=== PATIENT | female | born 1985 | race Two or more races ===

== ENCOUNTER 2020-09-24 09:48 | Outpatient (REF) | payer OTHER, SELFPAY ==
[2020-09-25 02:51] LABS: CT PCR NOT DETECTED (Not Detect.); NG PCR NOT DETECTED (Not Detect.)
[2020-09-25 09:07] LABS: BV Int Neg Control Negative (Negative); BV Int Pos Control Positive (Positive)
[2020-09-26 18:16] LABS: HPV mRNA E6/E7 rflx Not Detected (Not Detected)
== END 2020-09-24 09:49 | disposition home or self-care (01) ==
LOC: HO.LAB 09:48
PROVIDERS: PCP Internal Medicine; Referring Provider Internal Medicine; Visit Provider Advanced Practice Midwife
DX: Z01.419 Encounter for gynecological examination (general) (routine) without abnormal findings (principal); Z20.2 Contact with and (suspected) exposure to infections with a predominantly sexual mode of transmission; Z87.42 Personal history of other diseases of the female genital tract; R87.610 Atypical squamous cells of undetermined significance on cytologic smear of cervix (ASC-US); R87.810 Cervical high risk human papillomavirus (HPV) DNA test positive; N63.0 Unspecified lump in unspecified breast
CPT/HCPCS: 87480; 87491; 87510; 87591; 87624; 87625; 87660; 88142

== ENCOUNTER 2020-10-03 10:52 | Outpatient (REF) | payer OTHER, SELFPAY ==
--- NOTE | 2020-10-03 10:57 | MM_ITS ---
EXAMINATION: MM DIAGNOSTIC DIGITAL BREAST TOMOSYNTHESIS, BILATERAL US DIAGNOSTIC ULTRASOUND BREAST, RIGHT CLINICAL INFORMATION: 35-year-old with ropey palpable fullness 12:00 position at clinical exam. No palpable concern noted by patient. No discharge. No family history. No prior breast imaging. The lifetime risk of breast cancer based on the Tyrer-Cuzick Model is 8%. COMPARISON: None (current study represents initial baseline exam). TECHNIQUE: Digital breast tomosynthesis is performed in both the craniocaudal and mediolateral oblique views along with computer-aided detection (CAD). Synthesized 2D images are generated from the tomosynthesis. Additional spot right CC and spot right MLO x2 projections are obtained. Ultrasound right breast is targeted to the upper breast. Grayscale imaging and color Doppler are performed without and with harmonics. Patient has no focal area of palpable concern to direct attention during scanning. FINDINGS: The breasts are heterogeneously dense, which may obscure small masses (ACR BI-RADS breast composition Category c). There are no significant masses, abnormal calcifications, or other abnormalities. The axilla and skin contours are unremarkable. Ultrasound demonstrates no cystic or solid mass, architectural abnormality, or focal duct ectasia. No skin thickening or edema tracking in the soft tissue planes. Results are discussed with the patient at time of visit. Patient should be managed based on the clinical impression. If clinically indicated, further evaluation may be considered with surgical consult. Decision to proceed with biopsy should be based on clinical grounds and degree of clinical concern. MM/MM diagnostic mammo BI IMPRESSION: 1. No mammographic evidence of malignancy. 2. Unremarkable targeted right breast ultrasound. ASSESSMENT: BI-RADS 1: Negative RECOMMENDATION: 1. Patient should be managed based on the clinical impression. If clinically indicated, further evaluation may be considered with surgical consult. Decision to proceed with biopsy should be based on clinical grounds and degree of clinical concern. 2. Otherwise, routine annual screening mammography, beginning age 40, or earlier as clinical risk factors warrant. This patient's information was entered into a reminder system with a target due date for their next mammogram.
== END 2020-10-03 10:53 | disposition home or self-care (01) ==
LOC: HO.MAMMO 10:52
PROVIDERS: PCP Internal Medicine; Visit Provider Advanced Practice Midwife
DX: N63.0 Unspecified lump in unspecified breast (principal)
CPT/HCPCS: 76642; 77066

== ENCOUNTER → 2020-10-04 10:04 | Outpatient (BNVA) | payer OTHER, SELFPAY | PROVIDERS: Visit Provider Advanced Practice Midwife | DX: Z76.89 Persons encountering health services in other specified circumstances (principal) ==

== ENCOUNTER 2021-09-26 10:03 | Outpatient (REF) | payer OTHER, SELFPAY ==
[2021-09-26 12:32] LABS: HBc Num1 0.09 S/CO (0.00-0.79); Hepatitis B Core Antibody Nonreactive (Nonreactive)
[2021-09-26 12:40] LABS: HIV AB/AG Nonreactive (Nonreactive); HIV Num 1 0.06 S/CO (0.00-0.99); ~HepC Num1 0.06 S/CO (0.00-0.79); ~Hepatitis C Antibody Nonreactive (Nonreactive)
[2021-09-26 12:43] LABS: Syphilis Screen Nonreactive (Nonreactive)
[2021-09-26 14:44] LABS: CT PCR NOT DETECTED (Not Detect.); NG PCR NOT DETECTED (Not Detect.)
== END 2021-09-26 10:04 | disposition home or self-care (01) ==
LOC: HO.LAB 10:03
PROVIDERS: PCP Internal Medicine; Visit Provider Advanced Practice Midwife
DX: Z01.419 Encounter for gynecological examination (general) (routine) without abnormal findings (principal); Z20.2 Contact with and (suspected) exposure to infections with a predominantly sexual mode of transmission
CPT/HCPCS: 36415; 86704; 86780; 86803; 87389; 87491; 87591

== ENCOUNTER → 2022-05-25 10:51 | Outpatient (BNVA) | payer OTHER, SELFPAY | PROVIDERS: PCP Internal Medicine; Visit Provider Advanced Practice Midwife | DX: N63.25 Unspecified lump in the left breast, overlapping quadrants (principal) | CPT/HCPCS: 99212 ==

== ENCOUNTER 2022-06-09 14:11 | Outpatient (REF) | payer OTHER, SELFPAY ==
--- NOTE | ~2022-06-09 | MM_ITS ---
EXAMINATION: MM DIAGNOSTIC DIGITAL BREAST TOMOSYNTHESIS, BILATERAL US DIAGNOSTIC ULTRASOUND BREAST, LEFT CLINICAL INFORMATION: Palpable area of concern noted by patient upper inner left breast. Age 36. No known family history breast cancer. TC score 8%. COMPARISON: Mammography: 10/03/2020 (baseline diagnostic), targeted right breast ultrasound 10/03/2020. TECHNIQUE: Digital breast tomosynthesis is performed in both the craniocaudal and mediolateral oblique views along with computer-aided detection (CAD). Synthesized 2D images are generated from the tomosynthesis. Ultrasound left breast is targeted to the upper inner quadrant in the area of clinical concern. Patient is able to point to area at time of imaging. Grayscale imaging and color Doppler are performed without and with harmonics. FINDINGS: The breasts are heterogeneously dense, which may obscure small masses (ACR BI-RADS breast composition Category c). Parenchymal pattern is similar to prior exam. There is no interval mass or architectural abnormality or abnormal calcifications. The axilla are unremarkable. The skin contours are smooth. Ultrasound left breast demonstrates macrolobulated versus grouped cysts in area of clinical concern 10:00 position 8 cm in from nipple, overall size 1.7 x 1.1 x 1.6 cm. Margins are circumscribed. There is increased through-transmission of sound, no solid component, and no associated color flow. There is no solid mass or architectural abnormality. Results are discussed with the patient at time of visit, using an heel sprayer first. MM/MM tomosynthesis diagnostic BI IMPRESSION: -Benign cysts upper inner left breast corresponding to area of palpable concern measuring 1.7 cm in diameter. Right breast unremarkable. ASSESSMENT: BI-RADS 2: Benign RECOMMENDATION: Routine annual mammography screening, beginning age 40, or earlier as clinical risk factors warrant. This patient's information was entered into a reminder system with a target due date for their next mammogram.
== END 2022-06-09 14:12 | disposition home or self-care (01) ==
LOC: HO.MAMMO 14:11
PROVIDERS: PCP Internal Medicine; Visit Provider Internal Medicine
DX: N63.25 Unspecified lump in the left breast, overlapping quadrants (principal)
CPT/HCPCS: 76642; 77062; 77066

== ENCOUNTER 2022-10-05 10:12 | Outpatient (REF) | payer OTHER, SELFPAY ==
[2022-10-05 13:10] LABS: Syphilis Screen Nonreactive (Nonreactive)
[2022-10-05 13:57] LABS: CT PCR NOT DETECTED (Not Detect.); NG PCR NOT DETECTED (Not Detect.)
[2022-10-06 04:36] LABS: HBc Num1 0.08 S/CO (0.00-0.79); HIV AB/AG Nonreactive (Nonreactive); HIV Num 1 0.06 S/CO (0.00-0.99); Hepatitis B Core Antibody Nonreactive (Nonreactive); ~HepC Num1 0.06 S/CO (0.00-0.79); ~Hepatitis C Antibody Nonreactive (Nonreactive)
== END 2022-10-05 10:13 | disposition home or self-care (01) ==
LOC: HO.LNP 10:12
PROVIDERS: Visit Provider Advanced Practice Midwife
DX: Z11.4 Encounter for screening for human immunodeficiency virus [HIV] (principal); Z11.3 Encounter for screening for infections with a predominantly sexual mode of transmission; Z20.2 Contact with and (suspected) exposure to infections with a predominantly sexual mode of transmission
CPT/HCPCS: 86704; 86780; 86803; 87389; 87491; 87591

== ENCOUNTER 2023-04-08 09:00 | Outpatient (RCR) | payer OTHER, SELFPAY ==
--- NOTE | 2023-05-20 07:32 | MHC.PT.DC ---
[facility] [place] [facility] [place] [facility] [place] [facility] [address] Pascual Aranda [address] [phone] F: [phone] F: [phone] F: [phone] F: [phone] Physical Therapy Discharge Report Diagnosis: THORACIC SPINE PAIN Date of Surgery: NA Date of Evaluation: 04/02/23 Date of Discharge: 04/09/23 Treatments to Date: 2 Cancellations to Date: 0 No Shows to Date: 2 Discharge Status: Visit Non-compliance Discharge Summary: Attended eval and one treatment, no showed for next two treatments. Attempts to reach by phone were unsucessful. Status is unknown and patint is D/Drew for non-compliance. Electronically signed by: Ana Rosa Sandoval PT DPT Please sign and return to therapist. Thank you for your referral.
== END 2023-05-20 07:32 | disposition home or self-care (01) ==
LOC: HO.PT 09:00
PROVIDERS: PCP Internal Medicine; Visit Provider Internal Medicine
DX: M54.50 Low back pain, unspecified (principal); M54.6 Pain in thoracic spine
CPT/HCPCS: 97110; 97140; 97161; 97530

== ENCOUNTER 2023-08-26 14:10 | Outpatient (AMB) | payer OTHER, SELFPAY ==
[2023-08-26 14:14] VITALS: BP 120/78; PULSE 83; O2SAT 98; BMI 25.0
--- NOTE | 2023-08-26 14:14 | A.OFFPC_ITS ---
Vital Signs 08/26/23 14:14 Height 5 ft Weight 128 lb BMI 25.0 BP 120/78 Blood Pressure Location Lt brachial Position Sitting Pulse 83 Pulse Source Pulse Oximeter Pulse Oximetry (%) 98 Oxygen Delivery Method Room Air Intake Visit Reasons: PE Intake Note: Patient here for a physical exam College Coach Required: No Accompanied by: Self / Same As Patient Allergies No Known Allergies [No Known Allergies*] Allergy (Verified 08/26/23 14:25) Medication List - Last Reconciled 08/26/23 by Virgie De Leon MD ibuprofen 600 mg PO TID PRN 30 days norelgestromin-ethin.estradiol 150-35 mcg/24 hr (Xulane) 1 patch transdermal QWEEK 3 weeks sumatriptan succinate 25 mg PO Q2-4H PRN 30 days Tobacco use date assessed: 03/04/23 Dental Screening Dental Screen Date: 08/26/23 Did you have a dental visit in the last 12 months?: No Did you have a dental problem in the last 6 months where you did not have access to dental care?: No Was dental information given to patient?: Patient has dentist HPI HPI Comments History of Present Illness Details This is a 37-year-old female that comes for her physical exam. Last Pap smear was 2019 and was normal with HPV negative. No chest pain or shortness of breath. Complains of bilateral hand pain and will be referred to occupational therapy. [facility] Medical History History of abnormal cervical Pap smear Preeclampsia Surgical History Hx of section Hx laparoscopic cholecystectomy Family History (Updated 08/26/23 @ 14:28 by Virgie De Leon MD) Mother CVD (cardiovascular disease) Seizure disorder Maternal Grandmother Diabetes mellitus Father No problems noted. Social History Household Members: Children Housing: House Alcohol intake: former Patient Tobacco Use Status: Never used Tobacco e-Cigarette/Vaping Use: Never Used Second Hand Smoke Exposure: No service: No Current occupational status: employed Current occupation: housekeeping Current occupational exposures/hazards: No Sexual orientation: Straight/Heterosexual Gender identity: Female Cognitive needs: No Hearing needs: No Vision needs: No Female Reproductive History Menstrual Age of Menarche: 10 Questionnaire Thrive Questionnaire Date Thrive assessed: 03/04/23 KHUSHBOO-7 AMB Questionnaire KHUSHBOO-7 Date KHUSHBOO - 7 assessed: 03/04/23 Source: Developed by Drs. Mickey Narayan, Tiffany Page, Nitin Whatley and colleagues, with an educational declan from [employer]. Review of Systems Const All systems reviewed & are unremarkable except as noted in HPI and below Eyes Reports no additional complaints, Denies change in vision and Denies other visual disturbances Card Denies chest pain at rest, Denies chest pain with activity, Denies edema, Denies irregular heart rhythm, Denies claudication, Denies dyspnea, Denies dyspnea on exertion, Denies orthopnea, Denies paroxysmal nocturnal dyspnea and Denies slow heart rate Resp Denies cough, Denies dyspnea and Denies dyspnea on exertion GI Denies abdominal pain, Denies change in bowel habits, Denies excessive flatus, Denies nausea and Denies vomiting Denies urinary incontinence, Denies urinary hesitancy and Denies urinary urgency Musc Denies abnormal gait, Denies atrophy, Denies deformity and Denies limited range of motion Skin/Breast Denies bleeding lesions, Denies changing lesions and Denies rash Neuro Denies abnormal gait and Denies lack of coordination Physical exam (Primary Care) Vital Signs: Last Vital Signs Pulse 83 08/26/23 14:14 BP 120/78 08/26/23 14:14 Pulse Ox 98 08/26/23 14:14 Oxygen Delivery Method Room Air 08/26/23 14:14 BMI result Body Mass Index 25.0 Tobacco/Smoking Status: Tobacco use Status Tobacco use date assessed 03/04/23 08/26/23 14:17 Patient Tobacco Use Status Never used Tobacco 08/26/23 14:17 e-Cigarette/Vaping Use Never Used 08/26/23 14:17 Thrive Assessment: Date of Thrive Assessment Date Thrive assessed 03/04/23 08/26/23 14:17 Const Orientation/consciousness: patient oriented x3 HENMT Head: Yes normal to inspection, Yes normocephalic and Yes atraumatic Ears: external ears normal Eyes General: appearance normal, both eyes and all related structures Eyelids: Yes eyelids normal Conjunctivae: conjunctivae normal Neck Neck: Yes normal visual inspection and Yes supple Resp Effort & Inspection: normal respiratory effort Auscultation: clear to auscultation bilaterally Cardio Jugular venous distension: no JVD Rate: regular rate Rhythm: regular rhythm Heart sounds: S1 normal heart sound present and S2 normal heart sound present GI Inspection: Yes normal to inspection Palpation (GI): Soft to palpation and nontender Auscultation: normal bowel sounds Skin General skin exam: no rashes or lesions noted Neuro General: patient oriented x3 and no focal motor deficits Extrem General: Yes full ROM Psych Appearance: grossly normal Office Procedures Flu Questionnaire Does the patient have a severe egg allergy?: No Does the patient have severe life threatening allergies?: No Does the patient have a fever or illness today?: No Has the patient ever had Guillain-Harwood Syndrome?: No Has the patient ever had any past reaction to a flu shot?: No Immunizations flu vacc [id number] 6mos up(PF) 60 mcg(15 mcgx4)/0.5 mL IM syringe Performing Provider: Virgie De Leon MD Performing Location: [facility] Administered by: JAVY Feliz on 08/26/23 14:39 Dose Route Admin Location Dispensed Lot Number Expiration Date NDC Car Storer 0.5 mL IM Left Deltoid 0.5 mL [id number] 05/14/24 [id number] [employer] VIS Given Date VIS Provided VIS Publication Date 08/26/23 Single Vaccine 21 Eligibility Eligibility Date Funding Source Not [facility] Eligible 08/26/23 Private Assessment and Plan Assessment & Plan (1) Physical exam: Code(s): Z00.00 - Encounter for general adult medical examination without abnormal findings Plan: Repeat in a year Orders: Orders Influenza [id number] Immunization Today Z23 - Encounter for immunization OT Evaluation and Treatment Today M79.641 - Pain in right hand, M79.642 - Pain in left hand Coding Level of Care Code Est Pt Prev Care 18-39y(83041) Diagnoses Physical exam Z00.00 Time Spent (min) 31
== END 2023-08-26 14:39 | disposition home or self-care (01) ==
PROVIDERS: Visit Provider Internal Medicine
DX: Z00.00 Encounter for general adult medical examination without abnormal findings (principal); Z23 Encounter for immunization
CPT/HCPCS: 90471; 90686; 99395

== ENCOUNTER 2024-05-09 14:53 | Emergency (ER) | payer OTHER, SELFPAY ==
--- NOTE | ~2024-05-09 | US_ITS ---
EXAMINATION: US OBSTETRICAL ULTRASOUND CLINICAL INFORMATION: Spotting, cramping. COMPARISON: None available. LMP: Unknown. TECHNIQUE: Ultrasound of the maternal pelvis is performed using transabdominal and transvaginal transducers. Transvaginal imaging is performed due to inadequate visualization transabdominally. M-mode Doppler is also performed. FINDINGS: There is a single intrauterine gestational sac with visible yolk sac, embryo/fetus, and cardiac activity. There is no significant subchorionic hemorrhage or hematoma. HR: 172 beats per minute. CRL (crown rump length): 2.3 cm (9 weeks +/- 4 days). ANAI (estimated date of delivery): 12/12/2024 +/- 4 days. MATERNAL ADNEXA: Ovaries are normal in morphology with preserved flow on color Doppler at the moment of this examination. The right maternal ovary measures 2 x 1.8 x 1.5 cm. Volume 2.8 mL. The left maternal ovary measures 3.8 x 2.2 x 3.1 cm. Volume 13.8 mL. There is a 2.4 x 2.2 x 2 cm cyst in the left ovary with suggestion of a small amount of layering avascular debris. No adnexal masses. No free fluid. US/US OB <= 14 weeks fetus IMPRESSION: 1. Single live intrauterine gestation with ultrasound gestational age of 9 weeks. 2. Minimally complicated cyst in the left ovary, most likely representing a hemorrhagic cyst with layering debris. Recommend follow-up at the time of next OB appointment.
[2024-05-09 15:11] VITALS: BP 131/69; PULSE 94; RESP 20; TEMP 37.2; O2SAT 98; BMI 22.0
--- NOTE | 2024-05-09 15:13 | ED.GENADULT ---
HPI - General Adult General Chief complaint: Vaginal Bleeding Stated complaint: Vaginal bleeding, discomfort - pt is Time Seen by Provider: 05/09/24 16:58 Source: patient Mode of arrival: ambulatory Limitations: no limitations History of Present Illness ED Provider: SEBASTIAN CIFUENTES HPI narrative: 38-year-old female, , all premature births, with past medical history significant for preeclampsia presents to the emergency department today for evaluation of abdominal cramping and vaginal spotting x1 week. She can not recall when her LMP was however believes she had her. Prior to mother's day (2 months ago). Reports having unprotected intercourse approximately a month and a half ago. Reports recent nausea and dizziniess, prompting her to take home test one week ago which came back positive. Admits she has an appointment with her OBGYN on 05/23/24. Reports associated increased urinary frequency. Denies nausea at present. Denies fever, chills, flank pain, dysuria, hematuria, vomiting, constipation or diarrhea. Related Data Previous Rx's ?Medication ?Instructions ?Recorded ibuprofen 600 mg tablet 600 mg PO TID PRN pain 30 days #90 03/04/23 tabs sumatriptan succinate 25 mg tablet 25 mg PO Q2-4H PRN migraine 03/04/23 headache 30 days #9 tabs norelgestromin 150 mcg-e.estradiol 1 patch transdermal QWEEK 3 weeks 10/26/23 35 mcg/24 hr weekly transderm #3 ea patch (Xulane) cephalexin 500 mg capsule 500 mg PO BID 7 days #14 caps 05/09/24 vits no.126-ferrous fum 1 tab PO DAILY #30 tabs 05/09/24 28 mg iron-folic acid 800 mcg tablet (Classic ) Allergies Allergy/AdvReac Type Severity Reaction Status Date / Time No Known Allergies Allergy Verified 05/09/24 15:15 [No Known Allergies*] Review of Systems Review of Systems: Constitutional: No fever, chills, fatigue, night sweats, weight changes ENT/Mouth: No ear pain, hearing loss, nasal congestion, sinus pain, rhinorrhea, sore throat Eyes: No eye pain, swelling, redness, vision changes, discharge Cardio: No chest pain, palpitations, MA, orthopnea, peripheral edema Pulm: No SOB, cough, sputum, wheezing, dyspnea, hemoptysis GI: No nausea, vomiting, hematemesis, abdominal pain, diarrhea, constipation, hematochezia, melena : No dysuria, urgency, hesitancy, hematuria, flank pain, urinary flow changes, urinary incontinence or retention, +vaginal bleeding, +increased urinary frequency MSK: No back pain, neck pain, joint pain, myalgias Skin: No lesions, rashes Neuro: No weakness, numbness, paresthesias, LOC, dizziness, headache Psych: No anxiety/panic, depression, SI/HI, AH/VH All other systems reviewed and are negative. COUNTS INCLUDE 234 BEDS AT THE [facility] Past Medical History Attestation statement: The following information was validated with the patient. Source: old records reviewed and nursing notes reviewed Medical History History of abnormal cervical Pap smear Preeclampsia Surgical History Hx of section Hx laparoscopic cholecystectomy Family History Family History Mother CVD (cardiovascular disease) Seizure disorder Maternal Grandmother Diabetes mellitus Father No problems noted. Social History Social History Household Members: Children Housing: House Alcohol intake: former Patient Tobacco Use Status: Never used Tobacco e-Cigarette/Vaping Use: Never Used Second Hand Smoke Exposure: No service: No Current occupational status: employed Current occupation: housekeeping Current occupational exposures/hazards: No Sexual orientation: Straight/Heterosexual Gender identity: Female Cognitive needs: No Hearing needs: No Vision needs: No Physical Exam ED Vital Signs: Vital Signs - 24 hr 05/09/24 15:11 05/09/24 19:09 Temperature 98.9 F 98.9 F Pulse Rate 94 94 Respiratory Rate 20 20 Blood Pressure 131/69 131/69 Pulse Oximetry 98 98 Oxygen Delivery Method Room Air Room Air BMI result Body Mass Index 22.0 Vital signs stable, afebrile Const General: cooperative, healthy appearing, comfortable and no acute distress Orientation/consciousness: patient oriented x3 Limitations: no limitations HENMT Head: Yes normal to inspection, Yes No palpable skull fracture present, Yes normocephalic and Yes atraumatic Eyes General: appearance normal, both eyes and all related structures Resp Effort & Inspection: normal respiratory effort and able to speak in complete sentences Auscultation: clear to auscultation bilaterally Cardio Rate: regular rate Rhythm: regular rhythm GI Other: Abdomen soft, nondistended, nontender to palpation, no rebound tenderness or guarding. Normoactive bowel sounds x4. Other: Sensitive exam performed with security developer Marisa present in room to surveyor oil well directional. external genitalia is normal in appearance without lesions, swelling, masses or tenderness. Vaginal canal is pink and moist without lesions. There is copious amounts of purulent discharge within the vaginal canal. No blood or clots noted. Cervical os is closed. Cervix i non-tender without lesions or erosions. No blood noted at cervical os. Uterus is anteflexed, non-tender and normal in size. Ovaries are non-tender without palpable masses or enlargement. No cervical motion tenderness on bimanual exam. General: Yes no CVA tenderness Back/Spine/Pelvis Back: no CVA tenderness Skin General skin exam: no rashes or lesions noted Neuro General: patient oriented x3 Course Course Course Narrative: This is a rapid medical exam performed by Eli Koch NP: Additional HPI, ROS, PE not included below will be deferred to primary provider. Patient is a 38-year-old female , all premature births, presenting to the ED with one week of lower abdominal cramping and spotting. Multiple positive tests at home. Scheduled an apopintment with [facility] BURN TABLE OPERATOR but that is not until mid May. Unsure date of LMP. Denies recent intercourse. Plan: labs Reevaluation(s) Reevaluation #1: 6846-- CBC without leukocytosis or left shift. No anemia. H&H stable. Chemistry without acute electrolyte abnormality requiring intervention. Normal liver and renal function. Beta HCG quant measuring [id number], correlating with 7-12 week . ultrasound showing single live intrauterine gestation with ultrasound gestational age 9 weeks. There is minimally complicated cyst in the left ovary, most consistent with hemorrhagic cyst with layering debris. Outpatient OB follow-up recommended for this. Urine is positive for infection. Vaginal swabs for CT/NG, bacterial vaginosis and Trichomonas sent to lab for testing. Patient's blood type is O negative. Antibody screen negative. > I discussed case with on-call OBGYN, Dr. Kamara who recommends RhoGAM administration and discharge home with daily vitamins daily along with strict return precautions. Recommending outpatient follow-up as scheduled on 05/23/24. Will treat for urinary tract infection. Ivan sent to pharmacy for treatment. Advised patient that we will call with any positive results regarding STD swabs. she verbalizes understanding. I have also provided her with [facility] executive account manager referral to see if they are able to an earlier appointment. Patient has remained stable throughout ED visit today. Discussed worrisome signs and symptoms and when to return to the ED. All questions answered at this time. Patient is agreeable with disposition and stable for discharge. Medications Administered Discontinued Medications Generic Name Dose Route Start Last Admin Trade Name Freq PRN Reason Stop Dose Admin Rho Immune Globulin 300 mcg 05/09/24 18:24 05/09/24 18:50 Rho(D) Immune Globulin 300 Mcg Syringe IM 05/09/24 18:25 300 mcg ONCE ONE Administration Medical Decision Making Medical Decision Making MDM Narrative: 38-year-old female, , all premature births, with past medical history significant for preeclampsia presents to the emergency department today for evaluation of abdominal cramping and vaginal spotting x1 week. Vital signs stable, afebrile. She is nontoxic appearing in no acute distress. Sitting comfortably on the exam bed. Abdomen is soft, nondistended, nontender to palpation, no rebound tenderness or guarding. Normoactive bowel sounds x4. No CVAT bilaterally. On sensitive exam, external genitalia is normal in appearance without lesions, swelling, masses or tenderness. Vaginal canal is pink and moist without lesions. There is copious amounts of purulent discharge within the vaginal canal. No blood or clots noted. Cervical os is closed. Cervix i non-tender without lesions or erosions. No blood noted at cervical os. Uterus is anteflexed, non-tender and normal in size. Ovaries are non-tender without palpable masses or enlargement. No cervical motion tenderness on bimanual exam. Skin warm, dry, intact. No rashes. Differential diagnosis includes intrauterine , urinary tract infection, threatened , spontaneous , ovarian cyst, ovarian cyst rupture, ectopic , sexually transmitted infection. Unlikely ovarian torsion, missed , septic . Plan for basic labs, type and screen, BV, CT/NG, Trichomonas swabs, urinalysis, beta HCG quant, ultrasound, re-evaluation. Differential Diagnosis Differential Diagnoses: The differential diagnosis associated with the presentation includes As above Admission/Observation Not indicated. Consult Healthcare Provider Management of the patient was discussed with: Employee Adviser (NICOL Kamara) Lab Data MDM Lab Attestation statement: I reviewed the patient's lab results. as above. 05/09/24 15:59 05/09/24 15:58 Labs: Lab Results 05/09/24 05/09/24 Range/Units 15:58 15:59 WBC 8.9 (4.8-10.8) X10*3/uL RBC 3.96 L (4.20-5.50) X10*6/uL Hgb 12.5 (12.0-16.0) g/dl Hct 35.9 L (37.0-47.0) % MCV 90.7 (80.0-98.0) fL MCH 31.6 (27.0-33.0) pg MCHC 34.8 (31.0-35.0) g/dl RDW 11.9 (11.0-16.0) % Plt Count 238 (160-400) X10*3/uL MPV 11.1 (9.4-12.3) fL Immature Gran % (Auto) 0.4 (0.0-0.4) % Neut % (Auto) 69.4 (45-73) % Lymph % (Auto) 22.3 (20-40) % [place] % (Auto) 6.6 (2-11) % Eos % (Auto) 1.0 (0-4) % Baso % (Auto) 0.3 (0-2) % Lymph # (Auto) 2.0 (1.2-4.9) X10*3/uL [place] # (Auto) 0.6 (0.1-1.2) X10*3/uL Eos # (Auto) 0.1 (0.0-0.4) X10*3/uL Baso # (Auto) 0.0 (0.0-0.2) X10*3/uL Abs Immat Gran (auto) 0.04 H (0.00-0.03) X10*3/uL Absolute Neuts (auto) 6.2 (2.0-8.3) x10*3/uL Absolute Nucleated RBC 0.000 (0.0-0.012) X10*3/uL Nucleated RBC % (auto) 0.0 (0.0-0.2) /100WBC PT 11.0 L (11.1-13.3) SEC INR 0.9 (0.9-1.1) Sodium 139 (135-145) mmol/L Potassium 4.2 (3.3-5.1) mmol/L Chloride 105 (96-108) mmol/L Carbon Dioxide 26 (22-29) mmol/L Anion Gap 12 (12-20) BUN 13 (9-16) mg/dL Creatinine 0.62 (0.5-1.4) mg/dL Estim Creat Clear Calc 111.8 Estimated GFR > 60 Random Glucose 85 (60-115) mg/dL Calcium 9.3 (8.4-10.2) mg/dL Total Bilirubin 0.3 (0.0-1.0) mg/dL AST 17 (5-31) U/L ALT 9 (0-31) U/L Alkaline Phosphatase 100 (39-117) U/L Total Protein 8.0 (6.5-8.0) g/dL Albumin 4.2 (3.5-5.0) g/dL Beta HCG, Quant 211314 mIU/mL Urine Color Yellow Urine Appearance Cloudy Urine pH 5.5 (5.0-9.0) Ur Specific [place] >= 1.030 H (1.005-1.025) Urine Protein Trace (Neg-Trace) mg/dL Urine Glucose (UA) Negative (Negative) mg/dL Urine Ketones Negative (Negative) mg/dL Urine Blood Small (1+) H (Negative) Urine Nitrite Negative (Negative) Ur Leukocyte Esterase Moderate (2+) H (Negative) Urine RBC 6-10 H (0-2) /HPF Urine WBC 6-10 H (0-5) /HPF Ur Squamous Epith Cells 11-20 (0-2) /HPF Urine Bacteria 4+ (None Seen) Hyaline Casts 0-2 (0-2) /LPF Blood Type O Negative Antibody Screen NEGATIVE Independent Interpretation I performed an independent interpretation of an: Ultrasound Interpretation: ultrasound with intrauterine , agree with radiologist's interpretation. Radiology Impression Discussion of test interpretation with radiology: I have reviewed the radiologist's reading. Radiologist Impression: EXAMINATION: US OBSTETRICAL ULTRASOUND CLINICAL INFORMATION: Spotting, cramping. COMPARISON: None available. LMP: Unknown. TECHNIQUE: Ultrasound of the maternal pelvis is performed using transabdominal and transvaginal transducers. Transvaginal imaging is performed due to inadequate visualization transabdominally. M-mode Doppler is also performed. FINDINGS: There is a single intrauterine gestational sac with visible yolk sac, embryo/fetus, and cardiac activity. There is no significant subchorionic hemorrhage or hematoma. HR: 172 beats per minute. CRL (crown rump length): 2.3 cm (9 weeks +/- 4 days). ANAI (estimated date of delivery): 12/12/2024 +/- 4 days. MATERNAL ADNEXA: Ovaries are normal in morphology with preserved flow on color Doppler at the moment of this examination. The right maternal ovary measures 2 x 1.8 x 1.5 cm. Volume 2.8 mL. The left maternal ovary measures 3.8 x 2.2 x 3.1 cm. Volume 13.8 mL. There is a 2.4 x 2.2 x 2 cm cyst in the left ovary with suggestion of a small amount of layering avascular debris. No adnexal masses. No free fluid. US/US OB <= 14 weeks fetus IMPRESSION: 1. Single live intrauterine gestation with ultrasound gestational age of 9 weeks. 2. Minimally complicated cyst in the left ovary, most likely representing a hemorrhagic cyst with layering debris. Recommend follow-up at the time of next OB appointment. Independent Historian Clinical information obtained from an independent historian. History obtained from or confirmed by: Friend External Record Review External record reviewed: Inpatient record Prescription Management I considered prescription management with: Antibiotic (Keflex) and Other ( vitamin) Social Determinants Patient?s care significantly limited by Social Determinants of Health including: Other Social Determinant of Health Critical Care Time Critical Care Time Critical Care Time: No Discharge Plan Discharge Clinical Impression: Normal intrauterine on ultrasound in first trimester, Vaginal spotting Patient Disposition: Home, Self-Care Instructions: Non-Threatening First Trimester Vaginal Bleed (ED), Urinary Tract Infection in (ED), First Trimester (ED), at 7 to 10 Weeks (ED) Additional Instructions: Your blood work today is reassuring. Your hormone (beta HCG) measures 961975 today, consistent with 7-12 week . Your ultrasound shows intrauterine measuring approximately 9 weeks gestation. Given vaginal spotting, you were given RhoGAM in ED today to protect the baby against mom's antibodies. vitamins have been sent to your pharmacy for you to take daily for supplementation. As discussed, you were given strict return precautions. Return to the ED if you began to experience increased vaginal bleeding, clotting, fever, chills, nausea or vomiting, worsening abdominal pain. Follow-up with OBGYN on 05/23/2024 as planned. You may also reach out to [facility] OBGYN. A referral has been provided to you. You may call them to make an appointment. They will not call you. Additionally, your urine shows infection. Keflex is an antibiotic that has been sent to your pharmacy for you to take as treatment. This antibiotic is safe during . Take this as prescribed. Do not miss any doses or stop taking this early as this may cause infection to persist or worsen. Vaginal swabs to check for sexually transmitted infections have been sent to the lab. You will be called in 2-3 days with any positive results and will be treated at that time. Prescriptions: New cephalexin 500 mg capsule 500 mg PO BID 7 Days Qty: 14 0RF Classic 28 mg iron- 800 mcg tablet 1 tab PO DAILY Qty: 30 0RF No Action Xulane 150-35 mcg/24 hr patch weekly 1 patch transdermal QWEEK 21 Days Qty: 3 1RF Rx Instructions: apply once weekly for 3 weeks of a 4-week cycle sumatriptan succinate 25 mg tablet 25 mg PO Q2-4H PRN (Reason: migraine headache) 30 Days Qty: 9 0RF Rx Instructions: do not exceed 8 doses per 24 hrs ibuprofen 600 mg tablet 600 mg PO TID PRN (Reason: pain) 30 Days Qty: 90 0RF Referrals: [facility] Women's Services [Provider Group] Interventions: ED Discharge Assessment Last Done: 05/09/24 19:09 Discharge Date/Time: 05/09/24 19:10 Print Language: Amharic
[2024-05-09 16:03] LABS: MANUAL DIFF FLAG NO
[2024-05-09 16:08] LABS: Basophils Percent Auto 0.3 % (0-2); Eosinophils Absolute Auto 0.1 X10*3/uL (0.0-0.4); Hematocrit 35.9 % (37.0-47.0); Hemoglobin 12.5 g/dl (12.0-16.0); Imm Gran Abs Auto 0.04 X10*3/uL (0.00-0.03); Imm Gran Pct Auto 0.4 % (0.0-0.4); Lymphocytes Percent Auto 22.3 % (20-40); Mean Corpuscular HGB Conc 34.8 g/dl (31.0-35.0); Mean Corpuscular Hemoglobin 31.6 pg (27.0-33.0); Mean Corpuscular Volume 90.7 fL (80.0-98.0); Mean Platelet Volume 11.1 fL (9.4-12.3); Monocytes Absolute Auto 0.6 X10*3/uL (0.1-1.2); Monocytes Percent Auto 6.6 % (2-11); Neutrophils Absolute Auto 6.2 x10*3/uL (2.0-8.3); Neutrophils Percent Auto 69.4 % (45-73); Platelet Count 238 X10*3/uL (160-400); Red Blood Count 3.96 X10*6/uL (4.20-5.50); Red Cell Distribution Width 11.9 % (11.0-16.0); White Blood Count 8.9 X10*3/uL (4.8-10.8)
[2024-05-09 16:09] LABS: Appearance Urine Cloudy; Color Urine Yellow; Glucose Urine UA Negative (Negative); Leukocyte Esterase Urine Moderate (2+) (Negative); Nitrite Urine Negative (Negative); PH 5.5 (5.0-9.0); UMIC TRIGGER UACC YES; Urine Blood Small (1+) (Negative); Urine Ketones Negative (Negative); Urine Protein Trace mg/dL (Neg-Trace)
[2024-05-09 16:15] LABS: INTERNATIONAL NORM RATIO 0.9 (0.9-1.1)
[2024-05-09 16:22] LABS: Bacteria Urine 4+ (None Seen); Hyaline Casts Urine 0-2 /LPF (0-2); UACC Culture Trigger YES
[2024-05-09 16:23] LABS: Specific Gravity - Urine >= 1.030 (1.005-1.025)
[2024-05-09 16:34] LABS: Alanine Aminotransferase 9 U/L (0-31); Albumin Level 4.2 g/dL (3.5-5.0); Alkaline Phosphatase 100 U/L (39-117); Anion Gap 12 (12-20); Aspartate Amino Transferase 17 U/L (5-31); Bilirubin Total 0.3 mg/dL (0.0-1.0); Blood Urea Nitrogen 13 mg/dL (9-16); Calcium 9.3 mg/dL (8.4-10.2); Carbon Dioxide 26 mmol/L (22-29); Chloride 105 mmol/L (96-108); Creatinine Clr Calc Pharmacy 111.8; Estimated Glomerular Filt Rate > 60; Glucose Random 85 mg/dL (60-115); Potassium 4.2 mmol/L (3.3-5.1); Sodium 139 mmol/L (135-145)
--- NOTE | 2024-05-09 18:32 | PM.GYNCN ---
ROBOTICS ENGINEER - CN: HPI Data of Consult Consult date: 05/09/24 Primary Care Provider: Virgie De Leon MD Consult Narrative Narrative: I was consulted on Popeye Vences who is a 38 year old female presenting to the emergency room complaining of cramping and vaginal spotting x1 week. No other associated GI or symptoms no vaginal discharge. Blood type O negative antibody screen negative cc:: CC: OB PMF Past Medical History Medical History History of abnormal cervical Pap smear Preeclampsia Family History Family History Mother CVD (cardiovascular disease) Seizure disorder Maternal Grandmother Diabetes mellitus Father No problems noted. Surgical History Surgical History Hx of section Hx laparoscopic cholecystectomy Social History Social History Household Members: Children Housing: House Alcohol intake: former Patient Tobacco Use Status: Never used Tobacco e-Cigarette/Vaping Use: Never Used Second Hand Smoke Exposure: No Advance Directives: No Advance Directives Information Provided: No Do you have a plan to hurt others: No Plan service: No Current occupational status: employed Current occupation: housekeeping Current occupational exposures/hazards: No Sexual orientation: Straight/Heterosexual Gender identity: Female Cognitive needs: No Hearing needs: No Vision needs: No Meds Allergies Allergy/AdvReac Type Severity Reaction Status Date / Time No Known Allergies Allergy Verified 05/09/24 15:15 [No Known Allergies*] ROBOTICS ENGINEER Physical Exam Vitals Vital signs: Temp Pulse Resp BP Pulse Ox O2 Del Method 98.9 F 94 20 131/69 98 Room Air 05/09/24 15:11 05/09/24 15:11 05/09/24 15:11 05/09/24 15:11 05/09/24 15:11 05/09/24 15:11 BMI result Body Mass Index 22.0 Additional Comments: Reported by LAWRENCE Alfredo in the emergency room as the following: Abdomen soft nontender Pelvic exam no blood per vagina closed cervix, no cervical tenderness uterine or adnexal tenderness ROBOTICS ENGINEER - Results Labs 05/09/24 15:59 05/09/24 15:58 Labs: Short CBC 05/09/24 Range/Units 15:59 WBC 8.9 (4.8-10.8) X10*3/uL Hgb 12.5 (12.0-16.0) g/dl Hct 35.9 L (37.0-47.0) % Plt Count 238 (160-400) X10*3/uL BMP 05/09/24 15:58 Sodium 139 Potassium 4.2 Chloride 105 Carbon Dioxide 26 BUN 13 Creatinine 0.62 Calcium 9.3 Liver Function 05/09/24 Range/Units 15:58 Total Bilirubin 0.3 (0.0-1.0) mg/dL AST 17 (5-31) U/L ALT 9 (0-31) U/L Alkaline Phosphatase 100 (39-117) U/L Albumin 4.2 (3.5-5.0) g/dL Urine 05/09/24 Range/Units 15:59 Urine Color Yellow Urine Appearance Cloudy Urine pH 5.5 (5.0-9.0) Ur Specific [place] >= 1.030 H (1.005-1.025) Urine Protein Trace (Neg-Trace) mg/dL Urine Glucose (UA) Negative (Negative) mg/dL Antibody Screen Antibody Screen NEGATIVE 05/09/24 15:58 Imaging US - abdomen: Radiologist's impression: ITS Impressions Ultrasound 05/09/24 15:38 IMPRESSION: 1. Single live intrauterine gestation with ultrasound gestational age of 9 weeks. 2. Minimally complicated cyst in the left ovary, most likely representing a hemorrhagic cyst with layering debris. Recommend follow-up at the time of next OB appointment. Assessment and Plan (1) Early stage of : Status: Acute Recommended the following: RhoGAM 300 mcg IM. vitamin 1 tablet p.o. q.d. SAB warnings to be given to the patient, she is to come back to emergency room in case of pelvic cramping and or bleeding Follow-up with her scheduled care appointment. Check GC/CT, BV panel, urine culture if any is positive treat with appropriate antibiotics I spent a total of 20 minutes reviewing the chart, communicating to the emergency room provider and documenting in the medical record
[2024-05-09] MEDS: Rho(D) Immune Globulin 300 MCG SYRINGE IM (18:50)
[2024-05-09 19:09] VITALS: BP 131/69; PULSE 94; RESP 20; TEMP 37.2; O2SAT 98
[2024-05-09 20:54] LABS: CT PCR NOT DETECTED (Not Detect.); NG PCR NOT DETECTED (Not Detect.)
[2024-05-10 10:52] LABS: Bacterial Vaginosis PCR POSITIVE (Negative); Candida Group PCR NOT DETECTED (Not Detect); Candida glab krusei PCR NOT DETECTED (Not Detect); Trichomonas vaginalis PCR NOT DETECTED (Not Detect)
== END 2024-05-09 19:10 | disposition home or self-care (01) ==
PROVIDERS: Physician Assistant Medical; Registered Nurse Emergency; Emergency Provider Emergency Medicine; PCP Internal Medicine
DX: O20.9 Hemorrhage in early pregnancy, unspecified (principal); N76.0 Acute vaginitis; R25.2 Cramp and spasm; Z3A.01 Less than 8 weeks gestation of pregnancy; Z79.899 Other long term (current) drug therapy
CPT/HCPCS: 0352U; 0353U; 36415; 76801; 80053; 81001; 84702; 85025; 85610; 86850; 86900; 86901; 87086; 96372; 99282; 99284; J2790

== ENCOUNTER → 2024-05-09 16:59 | Outpatient (BNV) | payer OTHER, SELFPAY | PROVIDERS: Emergency Provider Emergency Medicine; PCP Internal Medicine; Visit Provider Obstetrics & Gynecology | DX: Z34.90 Encounter for supervision of normal pregnancy, unspecified, unspecified trimester (principal) | CPT/HCPCS: 99283 ==

== ENCOUNTER 2025-09-26 16:46 | Outpatient (AMB) | payer OTHER, SELFPAY ==
[2025-09-26 16:56] VITALS: BP 108/72; PULSE 70; O2SAT 98; BMI 28.5
--- NOTE | 2025-09-26 16:56 | MHC.PC.OV ---
Vital Signs 09/26/25 16:56 Height 5 ft Weight 146 lb BMI 28.5 BP 108/72 Blood Pressure Location Lt brachial Position Sitting Pulse 70 Pulse Source Pulse Oximeter Pulse Oximetry (%) 98 Oxygen Delivery Method Room Air Intake Visit Reasons: Wrist Pain Electric Cell Tender Required: No Accompanied by: Self / Same As Patient Allergies No Known Allergies (No Known Allergies*) Allergy (Verified 09/26/25 17:15) Medication List - Last Reconciled 09/26/25 by Virgie De Leon MD ibuprofen 600 mg PO TID PRN 30 days sumatriptan succinate 25 mg PO Q2-4H PRN 30 days Tobacco use date assessed: 09/26/25 Dental Screening Dental Screen Date: 09/26/25 Did you have a dental visit in the last 12 months?: Yes Did you have a dental problem in the last 6 months where you did not have access to dental care?: No Was dental information given to patient?: Patient has dentist HPI HPI Comments History of Present Illness Details The patient is a 40-year-old female presenting with a complaint that she has pain in her left wrist. She has a 9-month-old baby that she constantly carry her in the left hand. She reports a history of migraines managed with ibuprofen and sumatriptan. The patient has no known drug allergies. She has a history of an unspecified surgery. [facility] Medical History (Updated 09/26/25 @ 17:20 by Virgie De Leon MD) History of abnormal cervical Pap smear Preeclampsia Surgical History Hx of section Hx laparoscopic cholecystectomy Family History Mother CVD (cardiovascular disease) Seizure disorder Maternal Grandmother Diabetes mellitus Father No problems noted. Social History Household Members: Children Housing: House Alcohol intake: former Patient Tobacco Use Status: Never used Tobacco Tobacco use type: Cigarette e-Cigarette/Vaping Use: Never Used Second Hand Smoke Exposure: No service: No Current occupational status: employed Current occupation: housekeeping Current occupational exposures/hazards: No Sexual orientation: Straight/Heterosexual Gender identity: Female Cognitive needs: No Hearing needs: No Vision needs: No Female Reproductive History Menstrual Age of Menarche: 10 Questionnaire PHQ-9 Over the last 2 weeks, how often have you been bothered by any of the following problems? 1. Little interest or pleasure in doing things: not at all 2. Feeling down, depressed, or hopeless: not at all 3. Trouble falling or staying asleep, or sleeping too much: not at all 4. Feeling tired or having little energy: not at all 5. Poor appetite or overeating: not at all 6. Feeling bad about yourself - or that you are a failure or have let yourself or your family down: not at all 7. Trouble concentrating on things, such as reading the newspaper or watching television: not at all 8. Moving or speaking so slowly that other people could have noticed. Or the opposite - being so fidgety or restless that you have been moving around a lot more than usual: not at all 9. Thoughts that you would be better off or of hurting yourself in some way: not at all Total score: 0 Depression Screening Interpretation: Negative Depression Screening Done: Yes 26198 - PHQ-9 Billing: Yes Source: Developed by Drs. Mickey Narayan, Tiffany Page, Nitin Whatley and colleagues, with an educational declan from [employer]. Thrive Questionnaire Date Thrive assessed: 09/26/25 I am a: Patient What is your living situation today?: I choose not to answer this question Within the past 12 months, did the food you bought not last and you didn't have the money to get more?: I choose not to answer this question Within the past 12 months, did you worry whether your food would run out before you got money to buy more?: I choose not to answer this question Do you have trouble paying for medicines?: No Do you have trouble getting transportation to medical appointments?: No Do you have trouble paying your heating and electricity bill?: No Do you have trouble taking care of your child, family member or friend?: No Do you have trouble with day-to-day activities such as bathing, preparing meals, shopping, managing finances, etc.?: No Are you currently unemployed and looking for a job?: No Are you interested in more education?: No Please select the resources that you would like help with: None Currently or been in a relationship where the following occur: I choose not to answer THRIVE Score: 0 AUDIT C Alcohol Use Questionnaire (AUDIT-C) 1. How often do you have a drink containing alcohol?: Never 3. How often do you have six or more drinks on one occasion?: Never Total Score: 0 Score Reviewed/Action Taken: No KHUSHBOO-7 AMB Questionnaire KHUSHBOO-7 Date KHUSHBOO - 7 assessed: 09/26/25 Feeling nervous, anxious, or on edge: 0 = Not at all Not being able to stop or control worryin = Not at all Worrying too much about different things: 0 = Not at all Trouble relaxin = Not at all Being so restless that it is hard to sit still: 0 = Not at all Becoming easily annoyed or irritable: 0 = Not at all Feeling afraid as if something awful might happen: 0 = Not at all Total KHUSHBOO-7 score (0-4 normal; 5-9 mild; 10-14 moderate; 15-21 severe): 0 Source: Developed by Drs. Mickey Naaryan, Tiffany Page, Nitin Whatley and colleagues, with an educational declan from [employer]. KHUSHBOO-7 Assessment Billing KHUSHBOO-7 Assessment Tool: KHUSHBOO-7 Assessment 08169 Review of Systems Const All systems reviewed & are unremarkable except as noted in HPI and below Card Denies chest pain at rest, Denies chest pain with activity, Denies edema, Denies irregular heart rhythm, Denies claudication, Denies dyspnea, Denies dyspnea on exertion, Denies orthopnea, Denies paroxysmal nocturnal dyspnea and Denies slow heart rate Resp Denies cough, Denies dyspnea and Denies dyspnea on exertion GI Denies abdominal pain, Denies change in bowel habits, Denies excessive flatus, Denies nausea and Denies vomiting Physical exam (Primary Care) Vital Signs: Last Vital Signs Pulse 70 09/26/25 16:56 BP 108/72 09/26/25 16:56 Pulse Ox 98 09/26/25 16:56 Oxygen Delivery Method Room Air 09/26/25 16:56 BMI result Body Mass Index 28.5 Tobacco/Smoking Status: Tobacco use Status Tobacco use date assessed 09/26/25 09/26/25 17:01 Patient Tobacco Use Status Never used Tobacco 09/26/25 17:01 Tobacco use type Cigarette 09/26/25 17:01 e-Cigarette/Vaping Use Never Used 09/26/25 17:01 PHQ-9: PHQ-9 Score PHQ-9: Total score 0 09/26/25 17:01 Depression Screening Interpretation: Negative Thrive Assessment: Date of Thrive Assessment Date Thrive assessed 09/26/25 09/26/25 17:01 Currently or been in a relationship where the following occur: I choose not to answer Resp Effort & Inspection: normal respiratory effort Auscultation: clear to auscultation bilaterally Cardio Jugular venous distension: no JVD Rate: regular rate Rhythm: regular rhythm Heart sounds: S1 normal heart sound present and S2 normal heart sound present Extrem General: Yes full ROM Coding Level of Care Code Est Pt Level 3 (39458) Diagnoses Tenosynovitis of extensor hallucis longus tendon M65.9 Additional Codes PHQ-9 - 61062 - PHQ-9 Billing: Yes ([id number]) KHUSHBOO-7 Assessment Billing - KHUSHBOO-7 Assessment Tool: KHUSHBOO-7 Assessment 81258 ([id number]) Time Spent (min) 18 Assessment & Plan Assessment & Plan (1) Tenosynovitis of extensor hallucis longus tendon: Code(s): M65.9 - Synovitis and tenosynovitis, unspecified Category: Medical Plan Plan 1. Tenosynovitis of left hand A trial of therapy was recommended for the patient's symptoms. A referral to occupational therapy was suggested. Orders: Orders OT Evaluation and Treatment Today M65.9 - Synovitis and tenosynovitis, unspecified Lipid Panel Today E78.5 - Hyperlipidemia, unspecified Comprehensive [place]. Panel Fast Today M54.50 - Low back pain, unspecified
== END 2025-09-26 17:24 | disposition home or self-care (01) ==
LOC: HO.HMCH 16:47
PROVIDERS: PCP Internal Medicine; Visit Provider Internal Medicine
DX: M65.90 Unspecified synovitis and tenosynovitis, unspecified site (principal)

== ENCOUNTER → 2025-09-26 16:46 | Outpatient (BNVA) | payer OTHER, SELFPAY | PROVIDERS: PCP Internal Medicine; Visit Provider Internal Medicine | DX: M25.532 Pain in left wrist (principal); M65.90 Unspecified synovitis and tenosynovitis, unspecified site; G43.909 Migraine, unspecified, not intractable, without status migrainosus; E78.5 Hyperlipidemia, unspecified; M54.50 Low back pain, unspecified; Z79.899 Other long term (current) drug therapy | CPT/HCPCS: 96127; 99212 ==

== ENCOUNTER 2025-10-25 08:40 | Outpatient (REF) | payer OTHER, SELFPAY ==
[2025-10-25 10:10] LABS: Alanine Aminotransferase 11 U/L (0-31); Albumin Level 4.0 g/dL (3.5-5.0); Alkaline Phosphatase 127 U/L (39-117); Anion Gap 9 (12-20); Aspartate Amino Transferase 20 U/L (5-31); Blood Urea Nitrogen 11 mg/dL (9-16); Calcium 8.4 mg/dL (8.4-10.2); Carbon Dioxide 26 mmol/L (22-29); Chloride 108 mmol/L (96-108); Cholesterol 175 mg/dL (<200); Estimated Glomerular Filt Rate > 60; HDL Cholesterol 43 mg/dL (>40); Potassium 3.8 mmol/L (3.3-5.1); Sodium 139 mmol/L (135-145); Total Protein 7.2 g/dL (6.5-8.0); Triglycerides 129 mg/dL (<150)
== END 2025-10-25 08:41 ==
LOC: HO.LAB 08:40
PROVIDERS: PCP Internal Medicine; Visit Provider Internal Medicine
DX: E78.5 Hyperlipidemia, unspecified (principal); M54.50 Low back pain, unspecified
CPT/HCPCS: 36415; 80053; 80061